=== PATIENT | male | born 1940 | race Two or more races ===

== ENCOUNTER 2018-02-08 08:54 | Emergency (ER) | payer OTHER ==
[~2018-02-08] VITALS: Ht 172.7 cm; Wt 99.8 kg
[~2018-02-08 08:54] MED LIST: AMLO5TAB13 PO; ASPI25CA2 OR; ATEN50TA PO; ATO40T PO; CITA10TA70 PO; HYDR25TA4 PO; LISI-646 PO; TRAM50TA2 PO; TRAZ100T2 PO
[2018-02-08 08:55] VITALS: BP 66/37
[2018-02-08] MEDS ORDERED: SODIUM BICARBONATE 8.4% INJ 50ML SYRINGE IV ONE (08:55)
[2018-02-08] MEDS ORDERED: CALCIUM CHLOR(10%) 100MG/ML 10ML SYRINGE IV ONE (08:55)
[2018-02-08] MEDS ORDERED: EPINEPHrine HCL 1 MG/10 ML SYRG IV ONE (08:55)
[2018-02-08] MEDS ORDERED: NOREPINEPHRINE 8 MG/250ML KIT 250 ML IV ONE (09:04)
[2018-02-08] MEDS ORDERED: NOREPINEPHRINE 8 MG/250ML KIT 250 ML IV SCH (09:08)
[2018-02-08] MEDS ORDERED: EPINEPHrine HCL 1 MG/10 ML SYRG ONE (09:17)
[2018-02-08] MEDS ORDERED: SODIUM BICARBONATE 8.4% INJ 50ML SYRINGE ONE (09:18)
== END 2018-02-08 14:13 | disposition expired ==
LOC: ER 08:54 → EDUNIT# 08:54 → EDBD 08:54 → ER 14:13
DX: I46.9 Cardiac arrest, cause unspecified (principal); E11.9 Type 2 diabetes mellitus without complications; I10 Essential (primary) hypertension; Z86.73 Personal history of transient ischemic attack (TIA), and cerebral infarction without residual deficits
CPT/HCPCS: 71045; 82962; 92950; 99285; J0171